=== PATIENT | female | born 1945 | race Caucasian/White ===

== ENCOUNTER → 2017-05-07 | Outpatient (CLI) | payer OTHER | LOC: CAT 10:23 → ULTRA 10:23 | DX: R60.0 Localized edema (principal); R07.9 Chest pain, unspecified ==

== ENCOUNTER → 2017-11-03 | Outpatient (CLI) | payer OTHER ==
[~2017-11-03] MED LIST: XARELTO15 MG PO
== END ==
LOC: ULTRA 09:48
DX: M79.662 Pain in left lower leg (principal); R00.2 Palpitations

== ENCOUNTER → 2017-11-17 | Outpatient (CLI) | payer OTHER | LOC: ULTRA 08:35 | DX: I82.4Z2 Acute embolism and thrombosis of unspecified deep veins of left distal lower extremity (principal) ==

== ENCOUNTER → 2018-05-04 | Outpatient (CLI) | payer OTHER | LOC: ULTRA 09:01 | DX: R19.04 Left lower quadrant abdominal swelling, mass and lump (principal) ==

== ENCOUNTER 2018-07-25 14:39 | Emergency (ER) | payer OTHER ==
[~2018-07-25] VITALS: Ht 167.6 cm; Wt 60.3 kg
[2018-07-25 16:30] VITALS: BP 112/72
== END 2018-07-25 17:02 | disposition home or self-care (01) ==
LOC: ER 14:39
DX: M79.662 Pain in left lower leg (principal); R60.0 Localized edema; Z86.718 Personal history of other venous thrombosis and embolism; Z90.710 Acquired absence of both cervix and uterus

== ENCOUNTER 2018-07-29 09:27 | Emergency (ER) | payer OTHER ==
[~2018-07-29] VITALS: Ht 167.6 cm; Wt 60.3 kg
[2018-07-29 11:06] LABS: HEMATOCRIT 33.6 % (37.0-47.0); HEMOGLOBIN 11.4 gm/dL (12.0-15.0); MCH 32.3 pg (26.0-34.0); MCHC 34.1 g/dL (28.0-37.0); MCV 94.9 fL (80.0-100.0); RBC 3.54 mil/uL (4.20-5.00); RDW 12.4 % (10.5-14.5); WBC 5.2 thou/uL (4.0-11.0)
[2018-07-29 11:15] LABS: CALCIUM 9.3 mg/dL (8.5-10.1); CREATININE 0.8 mg/dL (0.6-1.0); POTASSIUM 3.9 mmol/L (3.5-5.1)
[2018-07-29 11:21] LABS: ALBUMIN 3.6 g/dL (3.4-5.0); TOTAL BILIRUBIN 0.6 mg/dL (<0.1-1.0); TOTAL PROTEIN 6.9 g/dL (6.4-8.2)
[2018-07-29] MEDS ORDERED: XARELTO15 MG PO (13:35)
[2018-07-29 13:56] VITALS: BP 138/71
== END 2018-07-29 14:00 | disposition home or self-care (01) ==
LOC: ER 09:27
PROVIDERS: Emergency Medicine
DX: I82.422 Acute embolism and thrombosis of left iliac vein (principal); Z86.711 Personal history of pulmonary embolism; Z90.710 Acquired absence of both cervix and uterus